=== PATIENT | female | born 1975 | race Caucasian/White ===

== ENCOUNTER 2022-05-07 07:30 | Day surgery (SDC) | payer OTHER, SELFPAY ==
[2022-05-07] MEDS: Lactated Ringers 1,000 ML 15 ML IV (07:40)
[2022-05-07 07:51] LABS: Internal QC Validated? YES +Cl - CLEAR BKGD
[2022-05-07 07:54] LABS: Pregnancy, Urine Negative Negative
[2022-05-07 08:00] VITALS: BP 114/80; PULSE 67; RESP 17; TEMP 36.8; O2SAT 100; BMI 26.2
--- NOTE | 2022-05-07 08:04 | PCM.HP.STD ---
HPI - General General Date of Service: 05/07/22 Chief Complaint: Screening for intestinal cancer HPI Narrative JERRY TAY, is a 47 F who presents who presents for screening colonoscopy today. She has not had a previous one. No abdominal pain no bright red blood per rectum. She otherwise enjoys good health other than thalassemia minor. [facility] Medical History Alcohol use Back pain COVID-19 Encounter for screening for COVID-19 Gestational diabetes Heartburn Non-smoker Rash Thalassemia minor Wears glasses Home Medications folic acid 400 mcg tablet 0.4 mg PO DAILY@0800 01/10/14 [History Last Taken 02/03/16] multivitamin 1 tab PO DAILY 02/24/22 [History Last Taken Unknown] famotidine 20 mg tablet 20 mg PO PRN PRN Itching 05/06/22 [History Last Taken Unknown] hydroxyzine pamoate 25 mg capsule 25 mg PO BID PRN Itching 05/06/22 [History Last Taken Unknown] triamcinolone acetonide 0.1 % topical cream 1 applic topical PRN PRN Rash 05/06/22 [History Last Taken Unknown] Allergy/AdvReac Type Severity Reaction Status Date / Time No Known Allergies Allergy Verified 05/06/22 13:40 Family History Mother Breast cancer Surgical History History of 3 sections Hx of dilation and curettage Hx of laparoscopy Social History Smoking Status: Never smoker alcohol intake: current alcohol intake frequency: a few times a month Alcohol type: beer ROS Constitutional Constitutional: Reports systems reviewed and no addt'l complaints, except as documented Cardiovascular Cardiovascular: Denies chest pain Respiratory/Chest Respiratory/Chest: Denies shortness of breath at rest Gastrointestinal Gastrointestinal: Denies abdominal pain, change in bowel habits, hematochezia or melena Vital Signs Vital Signs Vital Signs: 05/07/22 08:00 05/07/22 08:00 Temperature 98.2 F Temperature Source Temporal Pulse Rate 67 Respiratory Rate 17 Respiratory Pattern Normal Blood Pressure 114/80 Blood Pressure Mean 91 Blood Pressure Source Monitor Blood Pressure Position Semi-Fowlers Blood Pressure Location Left Arm Pulse Ox 100 Oxygen Delivery Method Room Air Weight Weight: 134 lb 7.712 oz Body Mass Index (BMI) 26.2 Physical Exam Const alert, oriented x3 and no apparent distress General Appearance: cooperative and comfortable Eyes General Eye: normal appearance of both eyes Neck General: normal visual inspection Chest inspection of chest normal Resp Effort and Inspection: able to speak in complete sentences and symmetric chest movement Auscultation: clear to auscultation bilaterally Cardio regular rate and regular rhythm GI soft to palpation, non-tender and non-distended Extremity no calf tenderness Neuro oriented x3 Psych thought process normal Results Lab / Micro Data Labs: Laboratory Results - last 24 hr 05/07/22 07:46: Urine Test Negative Assessment & Plan Assessment/Plan (1) Encounter for screening for malignant neoplasm of colon: PLAN: The patient presents via open access today to proceed with a screening colonoscopy with possible biopsy or polypectomy as indicated. She is aware of the technique, benefit, risk, alternatives. She has had an opportunity to ask and have questions answered. We will proceed as noted. Jim Berman M.D., F.A.C.S.
[2022-05-07 09:05] VITALS: BP 114/80; BP 94/56; PULSE 65; RESP 16; TEMP 36.3; O2SAT 100
--- NOTE | 2022-05-07 09:06 | OP.COLON_ITS ---
Patient Name: Mili Mcclelland Procedure Date: 05/07/2022 8:36 AM Date of : 1975 Age: 47 Procedure: Colonoscopy Indications: Screening for colorectal malignant neoplasm Providers: Jim Berman MD Medicines: See the Anesthesia note for documentation of the administered medications Patient Profile: Last Colonoscopy: none. The patient's first colonoscopy is today. Complications: No immediate complications. Procedure: Pre-Anesthesia Assessment: - Prior to the procedure, a History and Physical was performed, and patient medications and allergies were reviewed. The patient's tolerance of previous anesthesia was also reviewed. The risks and benefits of the procedure and the sedation options and risks were discussed with the patient. All questions were answered, and informed consent was obtained. Prior Anticoagulants: The patient has taken no previous anticoagulant or antiplatelet agents. ASA Grade Assessment: I - A normal, healthy patient. After reviewing the risks and benefits, the patient was deemed in satisfactory condition to undergo the procedure. After I obtained informed consent, the scope was passed under direct vision. Throughout the procedure, the patient's blood pressure, pulse, and oxygen saturations were monitored continuously. The adult colonoscope was introduced through the anus and advanced to the cecum, identified by appendiceal orifice and ileocecal valve. The colonoscopy was performed without difficulty. The patient tolerated the procedure well. The quality of the bowel preparation was good. The ileocecal valve and the appendiceal orifice were photographed. Scope In: 8:45:34 AM Scope Withdrawal Time 0 hours 7 minutes 15 seconds Scope Out: 9:01:53 AM Total Procedure Duration Time 0 hours 16 minutes 19 seconds Findings: The digital rectal exam findings include non-thrombosed external hemorrhoids, non-thrombosed internal hemorrhoids and internal hemorrhoids that prolapse with straining, but spontaneously regress to the resting position (Grade II). The colon (entire examined portion) appeared normal. Impression: - Non-thrombosed external hemorrhoids, non-thrombosed internal hemorrhoids and internal hemorrhoids that prolapse with straining, but spontaneously regress to the resting position (Grade II) found on digital rectal exam. - The entire examined colon is normal. - No specimens collected. Recommendation: - Discharge patient to home. - Resume previous diet. - Continue present medications. - Repeat colonoscopy in 10 years for screening purposes. Procedure Code(s): --- Professional --- 44726, Colonoscopy, flexible; diagnostic, including collection of specimen(s) by brushing or washing, when performed (separate procedure) Diagnosis Code(s): --- Professional --- Z12.11, Encounter for screening for malignant neoplasm of colon K64.1, Second degree hemorrhoids K64.4, Residual hemorrhoidal skin tags CPT copyright 2017 [employer]. All rights reserved. The codes documented in this report are preliminary and upon alumni relations coordinator review may be revised to meet current compliance requirements. Jim Berman MD 05/07/2022 9:06:03 AM This report has been signed electronically. Number of Addenda: 0 Note Initiated On: 05/07/2022 8:36 AM
--- NOTE | 2022-05-07 09:07 | OP.CCLET_ITS ---
05/07/2022 Alex Banuelos [address] [place] [address] Re : Colonoscopy procedure for Mili Stas Dear Dr. Banuelos This procedure was performed on Saturday, May 07, 2022. My impressions and recommendations are as follows: Impressions : - Non-thrombosed external hemorrhoids, non-thrombosed internal hemorrhoids and internal hemorrhoids that prolapse with straining, but spontaneously regress to the resting position (Grade II) found on digital rectal exam. - The entire examined colon is normal. - No specimens collected. Recommendations : - Discharge patient to home. - Resume previous diet. - Continue present medications. - Repeat colonoscopy in 10 years for screening purposes. My findings are described in the full procedure note, which is enclosed. If I can be of further assistance, please feel free to contact me at Doctor phone number(s): Work: . Sincerely, Jim Berman MD 05/07/2022 9:06:03 AM This report has been signed electronically.
[2022-05-07 09:10] VITALS: BP 114/80; BP 97/66; PULSE 63; RESP 16; O2SAT 100
[2022-05-07 09:15] VITALS: BP 106/60; BP 114/80; PULSE 63; RESP 16; O2SAT 100
[2022-05-07 09:20] VITALS: BP 103/68; BP 114/80; PULSE 54; RESP 16; TEMP 36.2; O2SAT 100
[2022-05-07 09:49] VITALS: BP 114/80
== END 2022-05-07 09:53 | disposition home or self-care (01) ==
LOC: EN 07:39 → AC 07:39
PROVIDERS: Anesthesiology; PCP Student in an Organized Health Care Education/Training Program; Referring Provider Student in an Organized Health Care Education/Training Program; Visit Provider Surgery
PROC: 0DJD8ZZ Inspection of Lower Intestinal Tract, Via Natural or Artificial Opening Endoscopic (ICD-10-PCS; CPT 45378; principal; 2022-05-07 08:25)
DX: Z12.11 Encounter for screening for malignant neoplasm of colon (principal); K64.1 Second degree hemorrhoids; K64.4 Residual hemorrhoidal skin tags; Z86.16 Personal history of COVID-19; Z79.899 Other long term (current) drug therapy
CPT/HCPCS: 45378; 81025; J7120; J2405